=== PATIENT | male | born 1945 | race American Indian/Alaskan Native ===

== ENCOUNTER 2017-01-29 05:33 | Emergency (ER) | payer MEDICAID, MEDICARE ==
[2017-01-29 05:36] VITALS: O2SAT 100
[2017-01-29] MEDS ORDERED: oxyCODONE 10 mg ER Tab (oxyCONTIN) PO STA (06:17)
--- NOTE | 2017-01-29 06:21 | C.PDOC ---
History Of Present Illness 71 yo male w/PMHx of HIV, Hep.C, leukemia, chronic left lower leg wounds s/p grafting surgery 5months ago in [place], [facility] for evaluation of Left lower leg pain with open wounds, admits chronic, with acute exacerbation for past day. Pt reports, was see at [facility] [place] times due to same complaints ( brought discharge paper and reports), last time was evaluated week ago when received antibiotic-Cipro, Flagyl, but ran out of my pain medication, request oxycodone. Otherwise, pt denies fever, chills, CP, SOB, dyspnea, palpitation, denies new weakness, sensory or vascular deficits to Left leg. Pt sts, " change my wound dressing myself daily. I dont have wound care yet" . Pt denies, wound draining, redness or any new changes around wound. Ambulatory in ED w/baseline gait w/ assistance of cane. Papers from [facility] [place], pt was scheduled for wound care clinic visit start 01/28/17. Time Seen by Provider: 01/29/17 05:52 Chief Complaint (Nursing): Lower Extremity Problem/Injury Past Medical History Vital Signs: Last Vital Signs Temp 97.4 F L 01/29/17 07:13 Pulse 77 01/29/17 07:13 Resp 19 01/29/17 07:13 BP 125/61 01/29/17 07:13 Pulse Ox 100 01/29/17 07:13 - Medical History PMH: Anemia, HIV, Kidney Stones Family History: States: No Known Family Hx - Social History Hx Alcohol Use: Yes Hx Substance Use: Yes - Immunization History Hx Tetanus Toxoid Vaccination: No Hx Influenza Vaccination: No Hx Pneumococcal Vaccination: No Physical Exam - Physical Exam Appears: Well, Non-toxic, No Acute Distress Skin: Normal Color, Warm, Other ((+) open wound along Left can 5:10 cm and dorsal aspect Left foot 2#4 cm, appears clean, dry, intact. NO cellulitis, no proximal streaking.) Head: Normacephalic Eye(s): bilateral: PERRL Nose: No Discharge Oral Mucosa: Moist Neck: Trachea Midline, Supple Cardiovascular: Rhythm Regular, No Friction Rub, No Murmur, No JVD Respiratory: No Decreased Breath Sounds, No Accessory Muscle Use, No Rales, No Rhonchi, No Stridor, No Wheezing Gastrointestinal/Abdominal: Soft, No Tenderness, No Guarding, No Rebound Extremity: Tenderness (left lower leg), No Calf Tenderness, Capillary Refill ( less than 2sec to B?L LEs.), No Deformity, Swelling (mild edema to Left lower leg and foot, no pitting edema.) Neurological/Psych: Oriented x3, Normal Speech, Normal Motor, Normal Sensation, Normal Reflexes ED Course And Treatment O2 Sat by Pulse Oximetry: 100 Pulse Ox Interpretation: Normal Progress Note: On reeavl, pt is aferile, hemodynamicaly stable. NOn-toxic. Ambulatory in ED with baseline gait. LLE: Exam c/w chronic open wound s/p grafting. Wounds appers clean, dry, intact. FAROM, no neurovascular deficits to left leg, no cellulitis, no proximal streaking, (-) calf tenderness. Neurologicaly intact. Pt advised and ref. to F/u with wound clinic in 2-3 days for re-eval. return if any new changes. Disposition Counseled Patient/Family Regarding: Studies Performed, Diagnosis, Need For Followup - Disposition Referrals: Clinic,Med Surg [Primary Care Provider] - [facility] [facility] [Outside] Disposition: HOME/ ROUTINE Disposition Time: 06:25 Condition: STABLE Additional Instructions: Follow up with wound care for further wound treatment. Take medications prescribed Continue antibiotic as prescribed Return if any new changes. Instructions: Chronic Wound Care (ED) Forms: [employer] ([place]) - Clinical Impression Clinical Impression: Chronic wound of extremity
[2017-01-29] MEDS ORDERED: oxyCODONE 10 mg ER Tab (oxyCONTIN) PO ONE (06:39)
[2017-01-29 07:14] VITALS: BP 125/61; PULSE 77; RESP 19; TEMP 97.4
== END 2017-01-29 07:15 | disposition home or self-care (01) ==
LOC: SUPCPDRO 05:33 → C.ER 05:33
DX: S81.802D Unspecified open wound, left lower leg, subsequent encounter (principal); X58.XXXD Exposure to other specified factors, subsequent encounter